=== PATIENT | female | born 1980 | race Hispanic/Latino ===

== ENCOUNTER 2016-07-15 08:21 | Inpatient (IN) | payer OTHER ==
[2016-07-15 08:29] VITALS: BMI 26.6
[2016-07-15] MEDS ORDERED: Lactated Ringer's 1,000 ML IV SCH ×2 (09:45)
[2016-07-15 10:16] LABS: HEMATOCRIT 31.6 % (34.0-47.0); MEAN CELL VOLUME 93.7 fL (81.0-99.0); MEAN CORPUSCULAR HEMOGLOBIN 30.5 pg (27.0-31.0); MEAN CORPUSCULAR HGB CONC 32.5 g/dL (33.0-37.0); MEAN PLATELET VOLUME 8.1 fL (7.2-11.7); RED CELL DISTRIBUTION WIDTH 13.4 % (11.5-14.5)
[2016-07-15 10:30] LABS: RBC URINE 3 /hpf (0-3); URINE BILIRUBIN NEGATIVE (NEGATIVE); URINE BLOOD NEGATIVE (NEGATIVE); URINE COLOR Yellow (YELLOW); URINE GLUCOSE (UA) NORMAL (Normal); URINE KETONE NEGATIVE (NEGATIVE); URINE LEUKOCYTE ESTERASE NEG Leu/uL (Negative); URINE PROTEIN 1+ mg/dL (NEGATIVE); URINE UROBILINOGEN NORMAL mg/dL (0.2-1.0); WBC URINE 2 /hpf (0-5)
--- NOTE | 2016-07-15 10:31 | OBHP ---
Datetime: 07/15/2016 09:43 IP Adm Impression: Term, intrauterine ; No Active Labor IP Adm Impression Other: Prev C/S x2; prev del; cholestasis of IP Admit Plan: Admit to unit; Initiate Section protocol Admit Comment, IP Provider: 36 y.o. , LMP 10/2015, DEIDRA 08/03/16, EGA 37w 2d sent by PMD for ev aluation of contractions since midnight; described as "bad cramps" = ctx. paon scal 12/16. Took nothi ng for them. (+) AFM. denies LOF, VB. care: Dr. Trang Saldivar; last visit 07/14/16. Elevated b ile acids/cholestasis of ; anemia. AMA. Prev C/S x 2. Prev del h/o pre-eclampsia P Ob: C/S x 2: 2005, at 33 weeks, twins, both males, 4lb 1oz, 3lb 15oz - pre-eclampsia; [facility] [place]. 2014 , female, 6lb 7oz, [facility] [place] - no complications. Spont ab x 3: 1995, 6wks; 2001, 12 wks; 2007, 2 mo - all with D_C, plus 1 repeat D_C PMH: Anemia; pre-eclampsia; gallstones; blood transfusion PSH: C/S x 2; 2014, lapaproscopic cholecystectomy NKDA Meds: PNV Soc Hx: (+) tob use cureently 5 cig/d; prior to up to 1 1/2 ppd x 25 years. Denies illic it drug or EtOH use. Lives with her children. Absentee FOB currently. 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 Fam Hx: adopted; no history of biologic parents P.E.: as above. WD in NAD. Awake, alert, oriented to time, person and place. Pleasant and cooperat zachariah Assessment: 36 yo P1133, 37wks 2d, uterine contractions - not in active labor. Newly diagnosed cho lestssis in . P has opted to proced with repeat delivery at this time. This has been discussed with the patient; who expresses and understanidng and agrees. Category 1 tracing. damir gical consent to be obtained by PMD. patient last ate 2330 hours 07/14/16. Plan: 1) Admit 2) NPO 3) IVFs 4) admission labs, incl pre-eclamptic labs 5) Continuous EFM 6) Qiu to gravity 7) Mefoxin, plastic and reconstructive surgeon to O.R. 8) Abdominal prep and shave 9) Notify peds 10) Notify anesthesia - as per, and discussed with Dr. Saldivar Pelvic Type - PN: Adequate Extremities - PN: Normal Abdomen - PN: Normal Back - PN: Normal Breast - PN: Not Done Lungs - PN: Normal Heart - PN: Normal Thyroid - PN: Not Done Neurologic - PN: Normal HEENT - PN: Normal General - PN: Normal Presentation-Admit: Vertex FHR - Baseline A Provider: 140 Membranes, Provider: Intact Contraction Comments Provider: irregular Comments, ACOG Physical Exam: Skin: warm, dry, intact; (+) tattooes on varous parts of body Abdomen: Gravid. Soft; non tender in all quadrants. Healed Pfannenstiel scar Extremities: no calf tenderness All other systems reviewed - as per HPI Gestation - Est Wks by US: 37w 2d IP Hx Assessment: The History has been Reviewed and is Current EGA AdmitDate IP: 37.2 Vital Signs Provider: Reviewed; Within Normal Limits IP Indication for Induction: Not Applicable IP Chief Complaint: Uterine contractions NICHD Variability Prov Fetus A: Moderate 6-25bpm NICHD Accel Fetus A IP Provider: [id number] FHR Category Provider Fetus A: Category I NICHD Decel Fetus A IP Provider: None Dilatation, Provider: FT Effacement, Provider: 40 Station, Provider: floating Genitourinary Exam: Normal DTRs - PN: Not Done
[2016-07-15 10:32] LABS: CHLORIDE 101 mmol/L (98-107); SODIUM 133 mmol/L (132-148)
[2016-07-15 10:33] LABS: POTASSIUM 3.8 mmol/L (3.6-5.2)
[2016-07-15 10:34] LABS: GFR AFRICAN-AMERICAN > 60
[2016-07-15 10:35] LABS: ALKALINE PHOSPHATASE 122 U/L (38-126); ALT/SGPT 8 U/L (9-52); AST/SGOT 14 U/L (14-36); BILIRUBIN,TOTAL 0.9 mg/dL (0.2-1.3); BLOOD UREA NITROGEN 7 mg/dL (7-17); CARBON DIOXIDE 25 mmol/L (22-30); GLUCOSE,RANDOM 88 mg/dL (65-105); TOTAL PROTEIN 6.4 g/dL (6.3-8.3); URIC ACID 2.9 mg/dL (2.2-7.5)
[2016-07-15 10:36] LABS: CALCIUM 8.3 mg/dl (8.6-10.4)
[2016-07-15 10:43] LABS: INR 0.9
[2016-07-15 10:45] LABS: ALB/GLOB RATIO 1.1 (1.0-2.1)
[2016-07-15] MEDS ORDERED: Sodium Citrate/Citric Acid 15 ml Sol ONE (11:22)
[2016-07-15] MEDS ORDERED: cefOXitin IV 2 gm in Dextrose 2 GM/50 ML BAG IVPB ONE (11:22)
[2016-07-15] MEDS: cefOXitin IV 2 gm in Dextrose 2 GM/50 ML BAG IVPB ONE (11:25)
[2016-07-15] MEDS: Sodium Citrate/Citric Acid 15 ml Sol PO ONE ×2 (11:26→11:27)
[2016-07-15] MEDS ORDERED: Oxytocin 20 units in LR 2,000 ML IV ONE (11:49)
[2016-07-15] MEDS ORDERED: Morphine 1 mg/ml preservative-free Inj(Duramorph) ONE (13:17)
[2016-07-15] MEDS ORDERED: Midazolam 2 MG/2 ML VIAL ONE ×2 (13:33→14:14)
[2016-07-15] MEDS ORDERED: ePHEDrine 50 mg/ml Inj ONE (13:55)
[2016-07-15] MEDS ORDERED: HYDROmorphone 0.5 mg/0.5 ml ISec IVP PRN (14:03)
[2016-07-15] MEDS ORDERED: DiphenhydrAMINE 50 mg/ml Inj IVP PRN (14:04)
--- NOTE | 2016-07-15 14:47 | OBDS ---
DELIVERY PERSONNEL Delivery Doctor: Lyle Saldivar MD Scrub Nurse: Cindy Ramirez OBT Milking Machine Mechanic: Rah Sheldon RN Anesthesiologist: Kathleen Collins MD MATERNAL INFORMATION Delivery Anesthesia: Spinal Medications in Delivery: PITOCIN 20 Estimated Blood Loss (ml): 700 Placenta Cultured: Yes Maternal Complications: Other Other Maternal Complications: preeclampcia in the other two ,anemia, labor 33 weeks twin Provider Comments: live female , no nuchal cord, apgars 9,9 weight of 7lb 9 ounces, normal jen earing uterus, tubes and ovaries, ebl 700ml, form setter supervisor present for delivery, bilateral tubal ligat ion performed. no complications LABOR SUMMARY EDC: 08/03/2016 00:00 No. Babies in Womb: 1 Attempted: No Labor Anesthesia: None LABOR INFORMATION Reason for Induction: Not Applicable Oxytocin: N/A Group B Beta Strep: Negative Antibiotics # of Doses: 1 Antibiotics Time of Last Dose: 1145 Steroids Given: None Reason Steroids Not Administered: Not Applicable MEMBRANES Membranes Rupture Method: Artificial Rupture of Membranes: 07/15/2016 13:49 Length of Rupture (hrs): 0.00 Amniotic Fluid Color: Clear Amniotic Fluid Amount: Moderate Amniotic Fluid Odor: Normal STAGES OF LABOR Stage 3 hrs: 0 Stage 3 min: 1 VAGINAL DELIVERY Episiotomy: None Laceration Extension: N/A Laceration Type: None CSECTION DELIVERY Primary Indication: Repeat Elective Secondary Indication: LABOR /PREECLAMPCIA CSection Urgency: Elective CSection Incidence: Repeat Labor: No Labor Elective: Elective CSection Incision: Lower Uterine Transverse BABY A INFORMATION Infant Delivery Date/Time: 07/15/2016 13:49 Method of Delivery: Born in Route : No : N/A Forceps: N/A Vacuum Extraction: N/A Shoulder Dystocia : No SHOULDER DYSTOCIA BABY A Infant Delivery Date/Time: 07/15/2016 13:49 PRESENTATION/POSITION BABY A Presentation: Cephalic Cephalic Presentation: Vertex Vertex Position: Left Occipital Anterior Breech Presentation: N/A PLACENTA INFORMATION BABY A Placenta Delivery Time : 07/15/2016 13:50 Placenta Method of Delivery: Manual Removal Placenta Status: Delivered SCORES BABY A Heart Rate 1 min: >100 bpm Resp Effort 1 min: Good Cry Reflex Irritability 1 min: Cough or Sneeze or Pulls Away Muscle Tone 1 min: Active Motion Color 1 min: Body [place], Extremities Blue Resuscitation Effort 1 min: Tactile Stimulation SCORE 1 MIN: 9 Heart Rate 5 min: >100 bpm Resp Effort 5 min: Good Cry Reflex Irritability 5 min: Cough or Sneeze or Pulls Away Muscle Tone 5 min: Active Motion Color 5 min: Body [place], Extremities Blue SCORE 5 MIN: 9 INFORMATION BABY A Gestational Age at Delivery: 37.0 Gestational Status: Term Infant Outcome : Liveborn Infant Condition : Stable Infant Sex: Female IDENTIFICATION/MEDS BABY A ID Band Number: [id number] ID Band Location: Left Leg; Left Arm Sensor Applied: Yes Sensor Number: [id number] Sensor Location : Cord Clamp WEIGHT/LENGTH BABY A Infant Birthweight (gms): 3440 Infant Weight (lb): 7 Infant Weight (oz): 9 Infant Length Inches: 19.00 Length cms: 48.3 CORD INFORMATION BABY A No. Cord Vessels: 3 Nuchal Cord : N/A Cord Blood Taken: Yes Suction: Mouth; Nose ASSESSMENT BABY A Infant Complications: None Complications Other: none Physical Findings at Delivery: Within Normal Limits Respirations: Appears Normal Dredge Worker/ALS Called : No Care By: dr lynne Transferred To: Remains with Mother
--- NOTE | 2016-07-15 14:51 | PCM.SURG1 ---
Surgeon's Initial Post Op Note - Surgeon's Notes Surgeon: Trang Saldivar MD Induction Coordination Power Engineer: Spenser Finch MD Type of Anesthesia: Spinal Pre-Operative Diagnosis: Term Intrauterine , previous cesearean section , ilya in labor, cholestasis of , multiparity desirng permanent tubal sterilzation Operative Findings: live female infant, apgars 9,9 weight of 7lbs 9 ounces, chemical operator present for delivery, normal appearing utuers, tubes and ovaries. biltaerl tubal ligation performed. Dr Spenser Finch was personal injury legal assistant and was present for entrie case and essential in gainign enry, retraction, exposuer , holding the bladder blade, helping to delier the infant, performing the tubal ligation, closing all layers and obtaining hemostasis. Post-Operative Diagnosis: same as above Operation Performed: Repeat Low transverse Cesearen section, Bilateral tubal ligation Specimen/Specimens Removed: placenta, portion of right and left fallopian tubes Estimated Blood Loss: EBL {In ML}: 700 Blood Products Given: N/A Drains Used: No Drains Date of Surgery/Procedure: 07/15/16 Time of Surgery/Procedure: 13:50
--- NOTE | 2016-07-15 15:43 | OP ---
PROCEDURE DATE: 07/15/2016 SURGEON: Dr. Trang Saldivar PLANT PROTECTION SUPERINTENDENT: Dr. Spenser Finch TYPE OF ANESTHESIA: Spinal. PREOPERATIVE DIAGNOSES: Term intrauterine , previous section, ilya in labor , cholestasis of , multiparity, desiring permanent bilateral tubal sterilization. OPERATIVE FINDINGS: Live female , Apgars 9 and 9. Weight of 7 pounds 9 ounces. Materials Technician present for delivery. Normal appearing uterus, tubes, and ovaries bilaterally. Bilateral tubal liga tion performed. Dr. Spenser Finch, the surgical services tech, was present for the entire case and essential in gaining ent ry, retraction, exposure, holding the bladder blade, helping to deliver the , performing the tu bal ligation, closing all layers and obtaining hemostasis. POSTOPERATIVE DIAGNOSES: Term intrauterine , previous section, ilya in labo r, cholestasis of , multiparity, desiring permanent bilateral tubal sterilization. OPERATION PERFORMED: Repeat low transverse section, bilateral tubal ligation. SPECIMEN REMOVED: Placenta, portion of right and left fallopian tubes. ESTIMATED BLOOD LOSS: 700 mL. BLOOD PRODUCTS: None. COMPLICATIONS: None. DESCRIPTION OF PROCEDURE: The patient was taken to the operating room where she was given spinal ane sthesia. Once spinal anesthesia was found to be adequate, she was positioned on the operating table in dorsal supine position. The patient was then prepped and draped in the usual sterile fashion. A timeout confirmed correct patient and correct procedure. A Qiu catheter was then inserted into the urethra to drain the bladder ____ to the prep. Following this, patient was given preoperative proph ylactic antibiotics. A Pfannenstiel skin incision was made through the existing incision, carried in line to the underlying fascia with the Bovie. The fascia was incised in the midline. Incision was extended laterally with the Bovie. Superior aspect of the fascial incision was grasped, elevated wit h Marissa clamps and the underlying rectus muscles were dissected off bluntly. Attention was then tur lea to the inferior aspect of the incision which, in similar fashion, was grasped and elevated with K ocher clamps and the underlying rectus muscles were dissected off bluntly. The rectus muscles were t hen bluntly in the midline, the peritoneum identified and the clear space entered sharply w ith Metzenbaum scissors. Incision was extended laterally and superiorly until there was good visuali zation of the bladder. The lower end of the [place] was then inserted. The vesicouterine peritoneum was incised with the Metzenbaum scissors and the incision was extended laterally. Bladder flap was created digitally. The lower end of the [place] was then reinserted. The lower uterine segment was incised in a transverse fashion and the uterine incision was extended laterally bluntly. Clear amnio tic fluid was noted. The surgeon's hand entered the uterine cavity and the 's head was deliver ed atraumatically followed by delivery of the shoulders followed by delivery of the body. Both oral and nasal passages of the baby were bulb suctioned, umbilical cord was clamped and cut and the baby w as handed off to waiting pediatricians. Cord blood and cord gases were collected and sent x 2. The placenta was then delivered manually. The uterus was exteriorized and cleared of all clots and debri s. The uterine incision was closed with 0 Vicryl in running continuous locked fashion. A second lay er of the same suture was used to close the uterus in a running imbricating manner. There was good h emostasis noted at the uterine incision site. Following this, a Mauri clamp was placed on the fallopian tube and the mesosalpinx was then cauteri zed in a circular fashion and a bilateral tubal ligation was performed using the [place] method on claudy th the right and left side. A portion of the fallopian tube was then removed, the ends cauterized an d the specimen was then sent to pathology. There was good hemostasis noted. The uterus then returne d to the abdomen and the paracolic gutters were cleared of all clots and debris and there was good he mostasis noted at the tubal sites. Following this, the peritoneum was reapproximated and closed with 2-0 chromic in a running continuous fashion. The rectus was reapproximated and closed with 2-0 chromic in interrupted manner. The fasc ia was reapproximated and closed with 0 Vicryl in running continuous fashion. The subcutaneous space was closed with 2-0 plain in an interrupted manner and the skin was reapproximated and closed with 4 -0 Monocryl in a running subcuticular fashion. At the end of the procedure, all needle, sponge and i nstrument counts were noted to be correct x 2. The patient tolerated the procedure well and was steele sferred to the recovery room in stable condition. Trang Saldivar MD cc: [id number] TT: 07/15/2016 15:42:44 sn
[2016-07-15] MEDS: ceFAZolin 1 gm FROZEN Premix 1 GM/50 ML ML IVPB SCH (21:11)
[2016-07-15] MEDS: Simethicone 80 mg Chewtab PO SCH (21:12)
[2016-07-16] MEDS: ceFAZolin 1 gm FROZEN Premix 1 GM/50 ML ML IVPB SCH ×2 (05:46→13:11)
[2016-07-16] MEDS ORDERED: Oxycodone/Acetaminophen 5/325 mg Tab PO PRN (07:00)
--- NOTE | 2016-07-16 08:29 | OBPPN ---
Datetime: 07/16/2016 08:25 PP Pain Prov: Within normal limits PP Nausea Prov: Denies PP Flatus Prov: No PP Abdomen/Uterus Prov: Normal PP Lochia Prov: Normal PP Extremities Prov: Normal PP C/S Incision Prov: Normal PP Comments Phys Exam Prov: fuduis below umblicus ext mild edema,no calf ten dressing clean and dry PP Impression Prov: Normal progression PP Plan Prov: Continue present management PP Progress Note Prov: pt was seen at bed side, pain under control, non/v, tolerating deit, waiting void,min lochia, flatus- pod#1 s/p c/s cbc deit cont pain management cont post op care encourage ambulation Vital Signs Provider PP: Reviewed; Within Normal Limits
[2016-07-16] MEDS: Oxycodone/Acetaminophen 5/325 mg Tab PO PRN ×3 (08:37→21:36)
[2016-07-16 09:22] LABS: BASO # 0.1 K/uL (0.0-0.2); BASO % 0.4 % (0.0-2.0); EOS # 0.2 K/uL (0.0-0.7); HEMATOCRIT 27.7 % (34.0-47.0); LYMPH # 2.4 K/uL (1.0-4.3); LYMPH % 11.6 % (20.0-40.0); MEAN CELL VOLUME 93.8 fL (81.0-99.0); MEAN CORPUSCULAR HEMOGLOBIN 30.9 pg (27.0-31.0); MEAN PLATELET VOLUME 7.8 fL (7.2-11.7); MONO # 1.2 K/uL (0.0-0.8); MONO % 5.8 % (0.0-10.0); RED CELL DISTRIBUTION WIDTH 13.3 % (11.5-14.5); WHITE BLOOD COUNT 20.7 K/uL (4.8-10.8)
[2016-07-16 10:06] LABS: CHLORIDE 99 mmol/L (98-107)
[2016-07-16 10:07] LABS: POTASSIUM 3.6 mmol/L (3.6-5.2); SODIUM 132 mmol/L (132-148)
[2016-07-16 10:09] LABS: AST/SGOT 22 U/L (14-36); BILIRUBIN,TOTAL 0.5 mg/dL (0.2-1.3); BLOOD UREA NITROGEN 4 mg/dL (7-17); CARBON DIOXIDE 26 mmol/L (22-30); GFR AFRICAN-AMERICAN > 60; TOTAL PROTEIN 5.7 g/dL (6.3-8.3)
[2016-07-16 10:10] LABS: ALKALINE PHOSPHATASE 102 U/L (38-126); ALT/SGPT 11 U/L (9-52); CALCIUM 8.2 mg/dl (8.6-10.4); GLUCOSE,RANDOM 88 mg/dL (65-105)
[2016-07-16] MEDS: Simethicone 80 mg Chewtab PO SCH ×4 (10:10→21:40)
[2016-07-16] MEDS: Prenatal Multivit/Folic Acid/Iron Tab PO SCH (10:11)
[2016-07-16] MEDS ORDERED: Bisacodyl 5mg EC Tab PO ONE (14:59)
--- NOTE | 2016-07-16 16:46 | CP.PCM.PN ---
Subjective - Date & Time of Evaluation Date of Evaluation: 07/16/16 Time of Evaluation: 09:00 - Subjective Subjective: pt seen and examined with no complaints. reports pain well contorlled, not yet ambuating, denies any ligthteadness, dizzyness, CP, SOB Objective - Vital Signs/Intake and Output Vital Signs (last 24 hours): Temp Pulse Resp BP Pulse Ox 98.3 F 97 H 18 119/73 100 07/16/16 08:00 07/16/16 08:00 07/16/16 08:00 07/16/16 08:00 07/16/16 08:00 - Medications Medications: Current Medications Acetaminophen (Tylenol 325mg Tab) 650 mg PO Q6 PRN PRN Reason: Fever >100.4 F Diphenhydramine HCl (Benadryl) 50 mg IVP Q6H PRN PRN Reason: Itching / Pruritus Docusate Sodium (Colace) 100 mg PO BID [facility] Last Admin: 07/16/16 10:09 Dose: 100 mg Ferrous Sulfate (Feosol) 325 mg PO DAILY [facility] Last Admin: 07/16/16 10:10 Dose: 325 mg Lactated Ringer's (Lactated Ringer's) 1,000 mls @ 125 mls/hr IV .Q8H [facility] Ibuprofen (Motrin Tab) 600 mg PO Q4 PRN PRN Reason: Pain, Mild (1-3) Last Admin: 07/16/16 13:37 Dose: 600 mg Ondansetron HCl (Zofran Inj) 4 mg IVP Q6H PRN PRN Reason: Nausea/Vomiting Oxycodone/Acetaminophen (Percocet 5/325 Mg Tab) 1 tab PO Q4H PRN PRN Reason: Pain, moderate (4-7) Stop: 07/19/16 07:01 Oxycodone/Acetaminophen (Percocet 5/325 Mg Tab) 2 tab PO Q4H PRN PRN Reason: Pain, severe (8-10) Stop: 07/18/16 14:59 Last Admin: 07/16/16 08:37 Dose: 2 tab Multivit/Folic Acid/Iron () 1 tab PO DAILY [facility] Last Admin: 07/16/16 10:11 Dose: 1 tab Sennosides (Senokot Tab) 17.2 mg PO HS [facility] Last Admin: 07/15/16 21:12 Dose: Not Given Simethicone (Mylicon Chew Tab) 80 mg PO QID [facility] Last Admin: 07/16/16 13:12 Dose: 80 mg Zolpidem Tartrate (Ambien) 5 mg PO HS PRN PRN Reason: Insomnia - Labs Labs: 07/16/16 09:06 07/16/16 09:06 PT 10.5 SECONDS (9.7-12.2) 07/15/16 10:12 INR 0.9 07/15/16 10:12 APTT 26 SECONDS (21-34) 07/15/16 10:12 - Constitutional Appears: Well, Non-toxic - Head Exam Head Exam: ATRAUMATIC, NORMAL INSPECTION - Eye Exam Eye Exam: EOMI, Normal appearance - ENT Exam ENT Exam: Mucous Membranes Moist - Neck Exam Neck Exam: Full ROM - Respiratory Exam Respiratory Exam: Clear to Ausculation Bilateral - Cardiovascular Exam Cardiovascular Exam: REGULAR RHYTHM, +S1, +S2 - GI/Abdominal Exam GI & Abdominal Exam: Soft, Normal Bowel Sounds Additional comments: non tender, nd, no guaring, no reboudn tendernes,s no rigidty Fundus: firm at level of umbilc incsion c/d/i moderate lochia, non ful smelling - Extremities Exam Extremities Exam: Full ROM, Normal Capillary Refill, Normal Inspection - Back Exam Back Exam: NORMAL INSPECTION - Psychiatric Exam Psychiatric exam: Normal Affect, Normal Mood Assessment and Plan (1) delivery delivered Status: Acute (2) History of bilateral tubal ligation Status: Acute - Assessment and Plan (Free Text) Assessment: s/p Repeat Low Transverse Somar section with BTL POD #1 with chronic asymaotmc anemia -cont current mangament -pain magnent -regular diet -encouarge ambuation/ incentive spirometer, abodminal binder -d/c richards -encourage breast feeding -iron therapy -repeat am cbc
[2016-07-17 00:06] VITALS: RESP 20
[2016-07-17] MEDS: Oxycodone/Acetaminophen 5/325 mg Tab PO PRN ×4 (04:03→22:03)
[2016-07-17 06:40] LABS: BASO # 0.1 K/uL (0.0-0.2); BASO % 0.5 % (0.0-2.0); EOS # 0.3 K/uL (0.0-0.7); EOS % 1.7 % (0.0-4.0); HEMATOCRIT 24.1 % (34.0-47.0); LYMPH # 3.4 K/uL (1.0-4.3); LYMPH % 22.1 % (20.0-40.0); MEAN CELL VOLUME 93.5 fL (81.0-99.0); MEAN CORPUSCULAR HEMOGLOBIN 30.8 pg (27.0-31.0); MEAN PLATELET VOLUME 7.8 fL (7.2-11.7); MONO # 1.3 K/uL (0.0-0.8); MONO % 8.6 % (0.0-10.0); RED CELL DISTRIBUTION WIDTH 13.3 % (11.5-14.5); WHITE BLOOD COUNT 15.3 K/uL (4.8-10.8)
[2016-07-17] MEDS: Prenatal Multivit/Folic Acid/Iron Tab PO SCH (10:40)
[2016-07-17] MEDS: Simethicone 80 mg Chewtab PO SCH ×4 (13:49→22:04)
[2016-07-17 14:32] LABS: BASO # 0.1 K/uL (0.0-0.2); BASO % 0.4 % (0.0-2.0); EOS # 0.3 K/uL (0.0-0.7); HEMATOCRIT 24.4 % (34.0-47.0); LYMPH # 3.2 K/uL (1.0-4.3); LYMPH % 20.6 % (20.0-40.0); MEAN CELL VOLUME 93.9 fL (81.0-99.0); MEAN PLATELET VOLUME 7.8 fL (7.2-11.7); MONO # 1.1 K/uL (0.0-0.8); MONO % 7.2 % (0.0-10.0); RED CELL DISTRIBUTION WIDTH 13.3 % (11.5-14.5); WHITE BLOOD COUNT 15.3 K/uL (4.8-10.8)
[2016-07-17 16:21] VITALS: O2SAT 97
[2016-07-18 00:03] VITALS: BP 106/56; PULSE 69; TEMP 98.1
[2016-07-18] MEDS: Oxycodone/Acetaminophen 5/325 mg Tab PO PRN ×2 (05:46→11:00)
[2016-07-18] MEDS: Simethicone 80 mg Chewtab PO SCH (10:58)
[2016-07-18] MEDS: Prenatal Multivit/Folic Acid/Iron Tab PO SCH (10:59)
--- NOTE | 2016-07-19 11:35 | OBPPN ---
Datetime: 07/18/2016 08:34 PP Pain Prov: Within normal limits PP Nausea Prov: Denies PP Flatus Prov: Yes PP BM Prov: Yes PP Breasts Prov: Normal PP Heart Prov: Normal PP Lungs Prov: Normal PP Abdomen/Uterus Prov: Normal PP Lochia Prov: Normal PP Vulva/Perineum Prov: Normal PP CVA Tenderness Prov: Normal PP Extremities Prov: Normal PP C/S Incision Prov: Normal PP Progress Prov: Normal PP Impression Prov: Normal progression Vital Signs Provider PP: Reviewed Datetime: 07/17/2016 08:46 PP Plan Prov: Continue present management PP Progress Note Prov: S-patient states that her pain is well controlled.she is tolerating regular d iet.ambulating and voiding without difficulty.passing faltus O-VSS afebrile Fundus firm and below umbilicus Incision clean, dry and intact Extremities no calf tenderness A/P Patient s/p csection pod 2 doing well -encourage ambulation and po fluid intake
--- NOTE | 2016-07-19 11:36 | OBDCSUM ---
Datetime: 07/18/2016 14:56 Discharge Instructions, Provider: Routine instructions given Discharge Diagnosis, Provider: Term Delivered Discharge Comment, Provider: precautions given Contraception after Delivery: Tubal Ligation
--- NOTE | 2016-07-19 11:36 | OBPPN ---
Datetime: 07/18/2016 08:34 PP Plan Prov: Continue present management; Discharge PP Progress Note Prov: pt seen and examined wth no complaints excpet pain controlled with medication . pt denies any fevers, chills, nausea, headaches, blurry vision, VSS PE see above A/P s/p RLTCS with BLT POD #3 doing well, -d/c home -rto 1 week -precautins given
== END 2016-07-18 15:40 | disposition home or self-care (01) | DRG 370 ==
LOC: C.EROB 08:21 → EEVIPCON 09:46 → C.4D 09:46 → C.4M 17:10
PROVIDERS: ADMIT Obstetrics & Gynecology; ATTEND Obstetrics & Gynecology
PROC: 10D00Z1 Extraction of Products of Conception, Low, Open Approach (ICD-10-PCS; principal; 2016-07-15)
PROC: 0UL70ZZ Occlusion of Bilateral Fallopian Tubes, Open Approach (ICD-10-PCS; 2016-07-15)
DX: O34.219 Maternal care for unspecified type scar from previous cesarean delivery (principal); O99.02 Anemia complicating childbirth; O09.523 Supervision of elderly multigravida, third trimester; Z30.2 Encounter for sterilization; Z3A.37 37 weeks gestation of pregnancy; Z37.0 Single live birth

== ENCOUNTER 2018-06-11 09:39 | Day surgery (SDC) | payer OTHER ==
[2018-06-01 13:03] VITALS: BMI 24.3
[2018-06-11 10:20] VITALS: O2SAT 100
[2018-06-11] MEDS ORDERED: Propofol 10 mg/ml Inj (20 ML) ONE (15:15)
[2018-06-11] MEDS ORDERED: Midazolam 2 MG/2 ML VIAL ONE (15:15)
[2018-06-11] MEDS ORDERED: Dexamethasone 4 mg/1 ml IVP PRN (16:06)
[2018-06-11] MEDS ORDERED: HYDROmorphone 0.5 mg/0.5 ml ISec IVP PRN (16:06)
[2018-06-11] MEDS ORDERED: Lactated Ringer's 1,000 ML IV SCH (16:15)
[2018-06-11 16:50] VITALS: PULSE 62; RESP 16; TEMP 97.9
[2018-06-11 16:56] VITALS: BP 136/79
--- NOTE | 2018-06-12 01:46 | OP ---
PROCEDURE DATE: 06/11/2018 PREOPERATIVE DIAGNOSIS: Abnormal uterine bleeding. POSTOPERATIVE DIAGNOSIS: Abnormal uterine bleeding. PROCEDURE PERFORMED: Hysteroscopic myomectomy, dilation and curettage. SURGEON: Trang Saldivar MD TYPE OF ANESTHESIA: General LMA. OPERATIVE FINDINGS: An 8-to 10-week size large anteverted uterus, bilateral ostia visualized, submucosal myoma noted on the anterior portion, carefully resected using MyoSure device, thin endometrial layer performed. NovaSure endometrial ablation was not performed. ESTIMATED BLOOD LOSS: 5 mL BLOOD PRODUCTS: None. COMPLICATIONS: None. DESCRIPTION OF PROCEDURE: The patient was taken to the operating room where she was given general anesthesia. Once it was found to be adequate, she was placed on the operating table in dorsal supine position with legs supported using stirrups. The patient was then prepped and draped in the usual sterile fashion. A time-out confirmed correct patient and correct procedure. Bimanual exam was performed with the above-mentioned findings. A [place] retractor was placed in the anterior and posterior fornix of the vagina. The cervix was adequately visualized. A single-tooth tenaculum was placed in the anterior lip of the cervix. The uterus was then sounded to 7 cm, following which the cervix was sequentially dilated to allow for introduction of the hysteroscope under direct visualization. Using the distention media, there was a mass noted, which was carefully resected using the MyoSure device. Thin endometrial layer was noted after careful resection of the myoma. A gentle curettage was done. The hysteroscope was then reintroduced and the endometrium appeared very, very thin. Due to concerns with endometrial ablation, the endometrial ablation was not performed. There was no uterine perforation. Fluid deficit was minimal. All instruments were removed with good hemostasis noted. At the end of the procedure, all needle, sponge, and instrument counts were noted and correct x2. The patient tolerated the procedure well and was transferred to the recovery room in stable condition. Trang Saldivar MD
== END 2018-06-11 17:27 | disposition home or self-care (01) ==
LOC: C.SDS 09:39
PROVIDERS: ATTEND Obstetrics & Gynecology
DX: N93.9 Abnormal uterine and vaginal bleeding, unspecified (principal); D25.9 Leiomyoma of uterus, unspecified
CPT/HCPCS: 58561; 88305; J1170; J2250; J2704; J3010